=== PATIENT | female | born 1960 | race Asian ===

== ENCOUNTER 2022-08-06 21:13 | Emergency (ER) | payer BC ==
[~2022-08-06] VITALS: Ht 157.5 cm; Wt 53.1 kg
[2022-08-06 21:19] VITALS: BP_SYST 158
--- NOTE | 2022-08-06 22:00 | NUR ---
Patient to ER bed 05 to gown for evaluation. Side rails up.
--- NOTE | 2022-08-06 22:20 | NUR ---
Received report from IGNACIO Sears; assuming care of patient at this time.
--- NOTE | 2022-08-06 22:25 | NUR ---
Patient presents to ED from home with c/o LAC to the 4th digit of left hand x1day. Patient reports intermittent throbbing pain 4/10 at this time. Patient states "I was cutting a cucumber when the knife slipped and cut my finger on the nail side diagonally." Patient A/Ox4, VSS, ambulatory, resp even and unlabored. Nad noted at this time. ER MD Gan made aware.
[2022-08-06] MEDS ORDERED: LIDOCAINE 1% 10 MG/ML, 20 ML MDV INJ ONE (23:00)
[2022-08-06] MEDS ORDERED: DIPHTH,PERTUSS(ACELL),TET VAC 0.5 ML VIAL (Tdap) I.M. ONE (23:15)
[2022-08-06] MEDS ORDERED: HYDROcodone/ACETAMIN 5-325 MG TAB (NORCO/ VICODIN) PO ONE (23:15)
[2022-08-06] MEDS ORDERED: ACETAMINOPHEN 500 MG TABLET PO ONE (23:30)
--- NOTE | 2022-08-06 23:38 | NUR ---
Took [place] out from [facility], but patient refused medication. Patient requesting Tylenol instead. Medication was destroyed properly per facility protocol. ER MD Gan made aware.
--- NOTE | 2022-08-06 23:50 | NUR ---
ER MD Gan at bedside performing laceration repair.
[2022-08-07] MEDS ORDERED: SILVER NITRATE APPLICATOR 1 STICK STICK..EA. TP ONE
[2022-08-07] MEDS ORDERED: BACITRACIN 1 GM OINT TP ONE (00:08)
[2022-08-07] MEDS ORDERED: BACI15OI13 TP (00:21)
[2022-08-07] MEDS ORDERED: CEPH250C PO (00:21)
[2022-08-07] MEDS ORDERED: cephALEXin 500 MG CAPSULE PO ONE (00:30)
[2022-08-07 00:32] VITALS: BP_SYST 158
--- NOTE | 2022-08-07 00:32 | NUR ---
Patient given written and verbal discharge instructions and verbalizes understanding. ER MD discussed with patient the results and treatment provided. Patient in stable condition. ID arm band removed. Rx of Keflex and Bacitracin ointment given. Patient educated on pain management and to follow up with PMD. Pain Scale 0/10. Opportunity for questions provided and answered. Medication side effect fact sheet provided. Patient A/Ox4, VSS, ambulatory, resp even and unlabored. Patient accompanied by daughter and in stable condition upon discharge.
== END 2022-08-07 00:32 | disposition home or self-care (01) ==
LOC: SED 21:13
DX: S61.325A Laceration with foreign body of left ring finger with damage to nail, initial encounter (principal); Z79.899 Other long term (current) drug therapy; W26.0XXA Contact with knife, initial encounter; Y93.89 Activity, other specified; Y92.89 Other specified places as the place of occurrence of the external cause; Y99.8 Other external cause status
CPT/HCPCS: 99284; 90715; 90471; 11730; J2001; 99283